=== PATIENT | female | born 1955 | race Caucasian/White ===

== ENCOUNTER 2019-08-14 10:41 | Day surgery (SDC) | payer OTHER ==
[2019-08-13 10:11] LABS: CLARITY,URINE CLEAR (Clear); COLOR,URINE STRAW (Yellow); GLUCOSE, URINE 100 mg/dl (Neg); KETONES,URINE NEGATIVE (Neg); LEUKOCYTE ESTERASE ,URINE TRACE (Neg); NITRITES, URINE NEGATIVE (Neg); OCCULT BLOOD,URINE TRACE-INTACT (Neg); PROTEIN,URINE NEGATIVE (Neg); UROBILINOGEN,URINE 0.2 E.U/dL (0.2-1.0)
[2019-08-13 10:17] LABS: UA COLLECTION TYPE CLN CATCH MIDSTREAM
[2019-08-13 10:28] LABS: BACTERIA,URINE NONE SEEN /HPF (Neg); RBC,URINE 0-2 /HPF (0-2); SQUAMOUS EPITHELIAL CELL,UR FEW /LPF (FEW); WBC,URINE 0-4 /HPF (0-4)
[2019-08-13 11:21] LABS: BASOPHILS % (AUTO) 0.3 % (0-1); EOSINOPHILS # (AUTO) 0.1 X10'3 (0-0.9); EOSINOPHILS % (AUTO) 1.1 % (0-6); LYMPHOCYTES # (AUTO) 3.3 X10'3 (1.1-4.8); LYMPHOCYTES % (AUTO) 41.5 % (21-51); MEAN CORPUSCULAR HEMOGLOBIN 29.6 PG (27.0-31.0); MEAN CORPUSCULAR HGB CONC 33.6 g/dL (33.0-36.5); MEAN PLATELET VOLUME 7.6 FL (7.4-10.4); MONOCYTES # (AUTO) 0.6 X10'3 (0-0.9); MONOCYTES % (AUTO) 8.1 % (2-12); NEUTROPHILS # (AUTO) 3.9 X10'3 (1.8-7.7); PRE OP HEMATOCRIT 42.2 % (35.0-45.0); PRE OP HEMOGLOBIN 14.2 g/dL (12.0-16.0); PRE OP PLATELET COUNT 272 X10'3 (140-440); RED CELL DISTRIBUTION WIDTH 14.6 % (11.5-14.5)
[2019-08-13 11:28] LABS: ALBUMIN 4.1 G/DL (3.4-5.0); ALBUMIN/GLOBULIN RATIO 1.1 (1.1-1.5); ALKALINE PHOSPHATASE 73 IU/L (46-116); BLOOD UREA NITROGEN 18 MG/DL (7-18); BUN/CREATININE RATIO 20.5 (6.6-38.0); CALCIUM 9.2 MG/DL (8.5-10.1); CHLORIDE 105 MMOL/L (99-107); CREATININE 0.88 MG/DL (0.40-0.90); PRE OP ALT 34 U/L (30-65); PRE OP ANION GAP 11 (8-16); PRE OP AST 25 U/L (10-37); PRE OP BILIRUB, TOTAL 0.5 MG/DL (0.0-1.0); PRE OP GLUCOSE 93 MG/DL (70-104); PRE OP POTASSIUM 3.5 MMOL/L (3.4-5.1); PRE OP SODIUM 145 MMOL/L (135-145); TOTAL CARBON DIOXIDE 29.3 MMOL/L (24-32); TOTAL PROTEIN 7.8 G/DL (6.4-8.2); eGFR 65 ML/MIN
[~2019-08-14] VITALS: Ht 162.6 cm; Wt 76.2 kg
[2019-08-14] VITALS (8 sets, daily range): BP systolic 123–143; BP diastolic 63–80
[~2019-08-14 10:41] MED LIST: AMLO5TAB PO; CALC600T22 PO; CHOL100025 PO; HCTZ25T PO; OMEG1CAP2 PO; OMEP10CA5 PO; UBID50TA3 PO; cefazolin/dext.iso 2gm/50ml 50 ML IV ONE; famotidine 20mg tablet PO ONE; ringers solution, lacted 1,000 ML IV SCH
[2019-08-14] MEDS ORDERED: proCHLORperazine 10 MG/2 ml inj IV PRN (11:35)
[2019-08-14] MEDS ORDERED: ondansetron/PF 4mg/2ml inj IV PRN (11:35)
[2019-08-14] MEDS ORDERED: morphine 4 MG/ML inj SYRINge IV PRN (11:35)
[2019-08-14] MEDS ORDERED: meperidine/PF 25mg/ml syringe IV PRN ×3 (11:35)
[2019-08-14] MEDS ORDERED: ringers solution, lacted 1,000 ML IV SCH (11:35)
[2019-08-14] MEDS ORDERED: morphine 2 MG/ML inj. syringe IV PRN (11:35)
[2019-08-14] MEDS ORDERED: bacitracin 15gm ointment TP ONE (11:43)
[2019-08-14] MEDS ORDERED: BUPIVAcaine/PF 2.5 mg/ml (0.25%) 30ml vial ONE (11:43)
[2019-08-14] MEDS ORDERED: fentaNYL/PF 50MCG/1 ML 2ML syringe ONE (12:25)
[2019-08-14] MEDS ORDERED: midazolam 2 mg/2 ml injection ONE (12:25)
[2019-08-14] MEDS ORDERED: dexamethasone sod phosphate 4mg/ml inj. ONE (12:26)
[2019-08-14] MEDS ORDERED: LIDOcaine 2% (20mg/ml) 5ml vial ONE (12:26)
[2019-08-14] MEDS ORDERED: ROPIVAcaine 0.5% (5mg/ml) 30ml vial ONE (12:26)
[2019-08-14] MEDS ORDERED: propofol inj 20 ML IV ONE (12:26)
[2019-08-14] MEDS ORDERED: ondansetron/PF 4mg/2ml inj ONE (13:23)
[2019-08-14] MEDS ORDERED: acetaminophen 1,000mg/100ml IV 100 ML IV ONE (13:47)
--- NOTE | 2019-08-14 14:10 | NUR ---
Received from OR via BED, accompanied by Anesthesiologist DR FARR and report given by Anesthesiolgist. PATIENT A&OX4, DENIES PAIN, V/S WNL, NEUROVASCULAR CHECKS INTACT, 20G PIV LUE, SCD ON, SPLINT/DRESSING TO RIGHT FOOT CDI ELEVATED WITH ICEBAG APPLIED.
--- NOTE | 2019-08-14 15:10 | NUR ---
PATIENT A&OX4, DENIES PAIN, V/S WNL, NEUROVASCULAR CHECKS INTACT, 20G PIV LUE D/C, SCD OFF, DRESSING TO RIGHT ANKLE CDI ELEVATED WITH ICEBAG APPLIED. I HAVE REVIEWED D/C INSTRUCTIONS WITH PATIENT AND FAMILY AND THEY HAVE VERBALIZED UNDERSTANDING. 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
== END 2019-08-14 15:10 | disposition home or self-care (01) ==
LOC: PAS 10:41
PROVIDERS: ATTEND Podiatrist Foot & Ankle Surgery
DX: S86.011A Strain of right Achilles tendon, initial encounter (principal); G89.18 Other acute postprocedural pain; K21.9 Gastro-esophageal reflux disease without esophagitis; I10 Essential (primary) hypertension; E66.01 Morbid (severe) obesity due to excess calories; Z68.28 Body mass index [BMI] 28.0-28.9, adult; Z79.899 Other long term (current) drug therapy; Z98.890 Other specified postprocedural states; Z90.49 Acquired absence of other specified parts of digestive tract; Z72.89 Other problems related to lifestyle; Z79.82 Long term (current) use of aspirin; X58.XXXA Exposure to other specified factors, initial encounter; Y93.89 Activity, other specified; Y92.89 Other specified places as the place of occurrence of the external cause; Y99.8 Other external cause status
CPT/HCPCS: 27650; 36415; 64445; 64447; 80053; 81001; 82948; 85025; 87088; 93005; A6223; J0131; J1100; J2001; J2250; J2405; J2704; J3010; J3490; J7120; A4215; A4618; A6253; A6449; A7000; J2795